=== PATIENT | female | born 1995 | race Caucasian/White ===

== ENCOUNTER 2018-02-09 14:16 | Emergency (ER) | payer OTHER ==
[~2018-02-09] VITALS: Ht 170.2 cm; Wt 108.9 kg
[2018-02-09 14:20] VITALS: BP 135/85; Ht 170.2 cm; Wt 108.9 kg
== END 2018-02-09 15:55 | disposition short-term general hospital (02) ==
LOC: ED 14:16
DX: O26.892 Other specified pregnancy related conditions, second trimester (principal); Z3A.21 21 weeks gestation of pregnancy; R35.0 Frequency of micturition; R10.9 Unspecified abdominal pain; R11.0 Nausea

== ENCOUNTER 2019-02-15 14:45 | Emergency (ER) | payer OTHER ==
[~2019-02-15] VITALS: Ht 170.2 cm; Wt 136.1 kg
[2019-02-15 14:52] VITALS: Ht 170.2 cm; Wt 136.1 kg
[2019-02-15 19:53] VITALS: BP 112/67
== END 2019-02-15 19:53 | disposition home or self-care (01) ==
LOC: ED 14:45
DX: G43.909 Migraine, unspecified, not intractable, without status migrainosus (principal); R42 Dizziness and giddiness; Z83.79 Family history of other diseases of the digestive system
CPT/HCPCS: J0780; J1885; J2270; J2405; J7030